=== PATIENT | male | born 1955 | race Caucasian/White ===

== ENCOUNTER 2017-12-22 16:11 | Observation (INO) | payer OTHER ==
[~2017-12-22] VITALS: Ht 172.7 cm; Wt 103.5 kg
[~2017-12-22 16:11] MED LIST: ADULT LOW DOSE81 MG PO; BYSTOLIC5 MG PO; CITALOPRAM HBR40 MG PO; CYCLOBENZAPRINE10 MG PO; CYMBALTA20 MG PO; DICLOFENAC SODI50 MG PO; DIVALPROEX SOD500 MG PO; ENALAPRIL MALEA20 MG PO; LISINOPRIL-HCT1 EAC1 PO; MELATONIN3 MG PO; MELOXICAM15 MG PO; METHYLPHENIDATE18 MG PO; METOPROLOL SUCC25 MG PO; METOPROLOL SUCC50 MG PO; MONTELUKAST SOD10 MG PO; NORCO 5-325 TA1 EACH PO; NORCO 7.5-3251 EACH PO; ROZEREM8 MG PO; SIMVASTATIN20 MG PO; TRILEPTAL150 MG PO; TYLENOL325 MG PO; ZOLOFT50 MG PO
[2017-12-22] MEDS ORDERED: ABILIFY20 MG PO (16:33)
[2017-12-22] MEDS ORDERED: VISTARIL25 MG PO (16:33)
[2017-12-22] MEDS ORDERED: OXCARBAZEPINE150 MG PO (16:35)
[2017-12-22] MEDS ORDERED: AMLODIPINE BESYL5 MG PO (16:35)
[2017-12-22] MEDS ORDERED: K-TAB ER20 MEQ PO (16:36)
[2017-12-22] MEDS ORDERED: LAMOTRIGINE100 MG PO (16:37)
[2017-12-22] MEDS ORDERED: LIPITOR20 MG PO (16:37)
[2017-12-22] MEDS ORDERED: GLUCOPHAGE XR500 MG PO (16:38)
--- NOTE | 2017-12-22 20:08 | NUR ---
PATIENT ARRIVED TO THE FLOOR VIA STRETCHER. PATIENT WAS ABLE TO AMBULATE A SBA. PATIENT IS STEADY ON HIS FEET. INTAKE COMPLETED. PATIENTS BEDSIDE SWALLOW EVAL COMPLETED AND PLACED IN THE CHART. PATIENT IS ADVANCED TO ADA DIET PER ORDER. PATIENT ORIENTED TO FLOOR AND ROOM. MRI CHECK SHEET COMPLETED AND PLACED IN THE CHART. ALL QUESTIONS ANSWERED. PATIENT IS ACCOMPAINED BY HIS . CALL LIGHT IN REACH.
--- NOTE | 2017-12-22 20:52 | NUR ---
PATIENT PROVIDED WITH SANDWICH BOX AND SOUP. NO FURTHER NEEDS NOTED. CALL LIGHT IN REACH. REMAINS AT THE BEDSIDE. RT IN THE ROOM TALKING WITH PT.
--- NOTE | 2017-12-22 21:16 | NUR ---
PT ASSESSMENT COMPLETE, PT ALERT AND ORIENTED X 4, PT DENIES ANY DEFACITS AT THIS TIME, SENSATION INTACT BUE, BLE. NO WEAKNESS NOTED. PT DOES STATE SPEECH IS " A LITTLE DELAYED". LUNGS CLEAR THROUGHOUT ALL LOBES. TO BRING HOME CPAP THIS EVENING. HR REGULAR RHTYHM ON TELE 2. PT CONCERNED WITH HOME OXCARBAZEPINE, VISTARIL 50 MG DOSE, PHONE CALL TO MD, MESSAGE LEFT ON VOICEMAIL. PT INSTRUCTED TO USE CALL LIGHT PRIOR TO GETTING OUT OF BED, VERBALIZED UNDERSTANDING, CALL LIGHT AND PERSONAL SUPPLIES IN REACH.
--- NOTE | 2017-12-22 22:20 | NUR ---
IN PT ROOM FOR MEDICATION ADMINISTRATION, HOME CPAP ON PT AT THIS TIME. NO REQUESTS. CALL LIGHT IN REACH.
--- NOTE | 2017-12-22 23:32 | NUR ---
IN ROOM FOR CONTINUOUS PROCESS MACHINE OPERATOR. PT HAS CPAP ON, LYING IN BED AWAKE. PT C/O NUMBNESS AND TINGLING IN LEFT ARM, STATES FROM LYING ON THAT ARM. CSM OTHERWISE INTACT. PT ALERT AND ORIENTED X 4. CALL LIGHT IN REACH, CPAP BACK ON.
--- NOTE | 2017-12-23 02:14 | NUR ---
VITALS COMPLETE AT THIS TIME. PT AWAKENS EASILY TO VOICE, HOME CPAP ON. PT ORIENTED X 4. STATES SOME NUMBNESS AND TINGLING IN LEFT ARM. CSM INTACT. STRENGTH EQUAL BUE, BLE. LUNGS CLEAR THROUGHOUT. HR 57 ON TELE 2. PT DENIES TOILETING NEEDS AT THIS TIME. CALL LIGHT IN REACH. LIGHTS OFF IN ROOM, NO REQUESTS AT THIS TIME.
--- NOTE | 2017-12-23 02:19 | NUR ---
VITALS AND I&OS DONE AND CHARTED. BEDSIDE TABLE AND CALL LIGHT WITHIN REACH.
--- NOTE | 2017-12-23 04:08 | NUR ---
CHECKED ON PT, APPEARS TO BE SLEEPING, EYES CLOSED, BREATHING NON-LABORED, VISIBLE CHEST RISE. HOME CPAP ON. LIGHTS OFF IN ROOM.
--- NOTE | 2017-12-23 05:32 | NUR ---
PT ALERT AND ORIENTED X 4. SOME NUMBNESS AND TINGLING NOTED LEFT ARM, CSM OTHERWISE INTACT. PT REPORTS SLOW SPEECH. SBA TO RESTROOM FOR QUANTITY SUFFICIENT VOIDS. PT USING HOME CPAP MACHINE WITH SLEEP. ON TELE 2.
--- NOTE | 2017-12-23 05:57 | NUR ---
VITALS AND IS AND OS COMPLETE AT THIS TIME, SBA TO RESTROOM FOR VOID, ORAL CARE, UPPER DENTURES BACK IN PT MOUTH. PT DENIES ANY NUMBNESS, TINGLING IN LEFT ARM. GAIT STEADY W AMBULATION. CSM INTACT BUE, BLE. PT BACK TO BED, REQUESTING COFFEE. CALL LIGHT IN REACH.
--- NOTE | 2017-12-23 07:40 | NUR ---
TELE AND STICKERS REMOVED FROM PATIENT'S PERSON AND PATIENT TAKEN TO MRI BY DIAGNOSTIC STAFF.
--- NOTE | 2017-12-23 08:15 | NUR ---
PATIENT IS OUT OF ROOM GETTING AN MRI DONE. I CAME IN AND CHANGED HIS BED LINENS. ALSO PUT NEW ELECTRODES ON HIS TELE.
--- NOTE | 2017-12-23 09:51 | NUR ---
PATIENT BACK IN BED AFTER MRI AND ULTRASOUND. PATIENT HAVING ECHO DONE NEXT IN HIS ROOM. FAMILY AT BEDSIDE.
[2017-12-23] MEDS ORDERED: OXCARBAZEPINE300 MG PO (10:41)
[2017-12-23] MEDS ORDERED: TOPROL XL25 MG PO (10:45)
--- NOTE | 2017-12-23 11:01 | EKG ---
[facility] [address] [place] [address] Signed Poor data quality, interpretation may be adversely affected Sinus bradycardia Otherwise normal ECG When compared with ECG of 13-NOV-2016 17:28, Vent. rate has decreased BY 54 BPM Confirmed by MICHELLE RESENDIZ MD ([id number]) on 12/23/2017 11:01:12 AM Electronically Signed By: MICHELLE RESENDIZ MD 12/23/17 1101 PATIENT NAME: JESUS CARMONA Electrocardiogram DATE OF : 59 PHYSICIAN: MICHELLE RESENDIZ MD REPORT #: [id number] REPORT IS CONFIDENTIAL AND NOT TO BE RELEASED WITHOUT AUTHORIZATION
--- NOTE | 2017-12-23 11:51 | NUR ---
MED REC COMPLETE
--- NOTE | 2017-12-23 14:00 | NUR ---
PATIENT IN BED AND AT BEDSIDE. PATIENT ALERT AND ORIENTED AND FEELS LIKE HE IS BACK TO HIS NORMAL SELF WITH EQUAL STRENGTH AND SENSATION IN ALL LIMBS. PATIENT AWAITING TO BE SEEN BY OT AND THEN HOPING TO BE DC'D HOME.
[2017-12-24] MEDS ORDERED: WARFARIN SODIUM1 MG PO (16:25)
== END 2017-12-23 16:05 | disposition home or self-care (01) ==
LOC: ED 16:11 → MS 16:12
PROVIDERS: ADMIT Internal Medicine
DX: I63.9 Cerebral infarction, unspecified (principal); R20.1 Hypoesthesia of skin; I10 Essential (primary) hypertension; E11.9 Type 2 diabetes mellitus without complications; R29.700 NIHSS score 0; E78.5 Hyperlipidemia, unspecified; F31.9 Bipolar disorder, unspecified; G47.33 Obstructive sleep apnea (adult) (pediatric); Z82.3 Family history of stroke; Z79.84 Long term (current) use of oral hypoglycemic drugs; Z79.1 Long term (current) use of non-steroidal anti-inflammatories (NSAID); Z79.82 Long term (current) use of aspirin; Z79.899 Other long term (current) drug therapy
CPT/HCPCS: 70450; 70551; 71045; 80053; 83036; 83735; 84484; 85025; 85610; 85730; 93005; 93010; 93225; 93226; 93227; 93306; 93880; 96372; 97116; 97161; 97165; 99285; G0378; G8978; G8979; G8980; J1650; Q0177

== ENCOUNTER 2017-12-24 16:09 | Emergency (ER) | payer OTHER ==
[~2017-12-24] VITALS: Ht 172.7 cm; Wt 103.4 kg
[~2017-12-24 16:09] MED LIST changes: +ABILIFY20 MG PO; +AMLODIPINE BESYL5 MG PO; +GLUCOPHAGE XR500 MG PO; +K-TAB ER20 MEQ PO; +LAMOTRIGINE100 MG PO; +LIPITOR20 MG PO; +OXCARBAZEPINE150 MG PO; +OXCARBAZEPINE300 MG PO; +TOPROL XL25 MG PO; +VISTARIL25 MG PO
[2017-12-24] MEDS ORDERED: WARFARIN SODIUM1 MG PO (16:25)
--- NOTE | 2017-12-25 12:34 | EKG ---
[facility] [address] [facility] [place] [address] Signed Sinus bradycardia Otherwise normal ECG When compared with ECG of 22-DEC-2017 17:00, Nonspecific T wave abnormality has replaced inverted T waves in Inferior leads Confirmed by MICHELLE RESENDIZ MD ([id number]) on 12/25/2017 12:34:17 PM Electronically Signed By: MICHELLE RESENDIZ MD 12/25/17 1234 PATIENT NAME: MATHEWJESUS Electrocardiogram DATE OF : 59 PHYSICIAN: MICHELLE RESENDIZ MD REPORT #: [id number] REPORT IS CONFIDENTIAL AND NOT TO BE RELEASED WITHOUT AUTHORIZATION
== END 2017-12-24 18:19 | disposition home or self-care (01) ==
LOC: ED 16:09
DX: R42 Dizziness and giddiness (principal); I10 Essential (primary) hypertension; E11.9 Type 2 diabetes mellitus without complications; F31.9 Bipolar disorder, unspecified; Z87.891 Personal history of nicotine dependence; Z79.01 Long term (current) use of anticoagulants; Z79.899 Other long term (current) drug therapy; Z79.82 Long term (current) use of aspirin; Z79.84 Long term (current) use of oral hypoglycemic drugs
CPT/HCPCS: 80053; 81001; 84484; 85025; 85610; 93005; 93010; 99283

== ENCOUNTER 2019-08-05 10:40 | Emergency (ER) | payer OTHER ==
[~2019-08-05] VITALS: Ht 172.7 cm; Wt 103.4 kg
[~2019-08-05 10:40] MED LIST changes: +WARFARIN SODIUM1 MG PO
[2019-08-05] MEDS ORDERED: LEXAPRO20 MG PO (11:02)
[2019-08-05] MEDS ORDERED: ATIVAN1 MG PO (12:30)
--- NOTE | 2019-08-06 12:49 | EKG ---
[facility] [address] [facility] [place] [address] Signed Sinus rhythm with occasional premature ventricular complexes Nonspecific ST and T wave abnormality Abnormal ECG When compared with ECG of 24-DEC-2017 16:18, premature ventricular complexes are now present Inverted T waves have replaced nonspecific T wave abnormality in Inferior leads QT has lengthened Confirmed by MICHELLE RESENDIZ MD ([id number]) on 08/06/2019 12:49:12 PM Electronically Signed By: MICHELLE RESENDIZ MD 08/06/19 1249 PATIENT NAME: JESUS CARMONA Electrocardiogram DATE OF : 59 PHYSICIAN: MICHELLE RESENDIZ MD REPORT #: [id number] REPORT IS CONFIDENTIAL AND NOT TO BE RELEASED WITHOUT AUTHORIZATION
== END 2019-08-05 12:38 | disposition home or self-care (01) ==
LOC: ED 10:40
DX: G25.3 Myoclonus (principal); T43.225A Adverse effect of selective serotonin reuptake inhibitors, initial encounter; I10 Essential (primary) hypertension; F31.9 Bipolar disorder, unspecified; E11.9 Type 2 diabetes mellitus without complications; Z79.899 Other long term (current) drug therapy; Z79.82 Long term (current) use of aspirin; Z79.84 Long term (current) use of oral hypoglycemic drugs
CPT/HCPCS: 80053; 83735; 84484; 85025; 93005; 93010; 96374; 96376; 99285-25; J2060

== ENCOUNTER 2019-08-18 11:45 | Emergency (ER) | payer OTHER ==
[~2019-08-18] VITALS: Ht 172.7 cm; Wt 103.4 kg
[~2019-08-18 11:45] MED LIST changes: +ATIVAN1 MG PO; +LEXAPRO20 MG PO
--- OUTSIDE RECORDS SUMMARY | 2019-08-18 11:48 | XMS ---
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 Ruth VISIT COUNT (12 MO.) 2 [facility] TOTAL 2 NOTE: Visits indicate total known visits. ED/UCC VISIT TRACKING (12 MO.) 08/18/2019 11:[address] 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
[2019-08-18] MEDS ORDERED: REMERON30 MG PO (11:57)
[2019-08-18] MEDS ORDERED: VALIUM5 MG PO (14:27)
--- NOTE | 2019-08-18 17:58 | EKG ---
[facility] [address] [facility] [place] [address] Signed Sinus rhythm with frequent premature ventricular complexes Otherwise normal ECG When compared with ECG of 05-AUG-2019 10:51, T wave inversion no longer evident in Anterior leads Confirmed by GENOVEVA LOERA MD ([id number]) on 08/18/2019 5:58:43 PM Electronically Signed By: GENOVEVA LOERA MD 08/18/19 1758 PATIENT NAME: MATHEWJESUS Electrocardiogram DATE OF : 59 PHYSICIAN: GENOVEVA LOERA MD REPORT #: [id number] REPORT IS CONFIDENTIAL AND NOT TO BE RELEASED WITHOUT AUTHORIZATION
== END 2019-08-18 14:45 | disposition home or self-care (01) ==
LOC: ED 11:45
DX: G24.9 Dystonia, unspecified (principal); R07.9 Chest pain, unspecified; G25.3 Myoclonus; I10 Essential (primary) hypertension; E11.9 Type 2 diabetes mellitus without complications; F31.9 Bipolar disorder, unspecified; G47.30 Sleep apnea, unspecified; Z79.899 Other long term (current) drug therapy; Z79.82 Long term (current) use of aspirin; Z79.84 Long term (current) use of oral hypoglycemic drugs
CPT/HCPCS: 71045; 80053; 82550; 84484; 85025; 93005; 93010; 96361; 96374; 96375; 99284-25; J1200; J3360; J7030

== ENCOUNTER 2020-12-30 08:36 | Emergency (ER) | payer OTHER ==
[~2020-12-30] VITALS: Ht 172.7 cm; Wt 103.4 kg
[~2020-12-30 08:36] MED LIST changes: +REMERON30 MG PO; +VALIUM5 MG PO
--- OUTSIDE RECORDS SUMMARY | 2020-12-30 08:43 | XMS ---
PreManage Notification: JESUS CARMONA Security Philanthropy Officer Events No recent Security Events currently on file CRITERIA MET - [facility] - Has Care Guidelines CARE PROVIDERS [facility] Internal Medicine 07/05/2017-Current PHONE: Unknown Guidelines Source: [facility] [facility] Guidelines Date: 11/06/2019 Care Coordination: Currently seeking mental health services through [employer]. Please contact [employer] for any mental health concerns.\T\nbsp; [place] [phone] [place] [phone] [facility] [phone] Care History Medical/Surgical 08/21/2019 [facility] - Patient is currently established with [facility]. If patient is seen in the ED during business hours. Please contact CHWs at [facility]. Care Recommendation: If this patient has had 5 or more Emergency Department visits in the last 12 months.\T\nbsp; Patient will require education on the scope and purpose of the ED as an acute care provider not a Primary Care Provider and should not be utilized for chronic conditions.\T\nbsp; These are guidelines and the provider should exercise clinical judgment when providing care. 08/21/2019 [facility] Patient has follow up with Dr. Pike on 08/22/2019 [facility] VISIT COUNT (12 MO.) 1 [facility] TOTAL 1 NOTE: Visits indicate total known visits. ED/UCC VISIT TRACKING (12 MO.) 12/30/2020 08:37 [facility] [place] TYPE: Emergency COMPLAINT: - HAND TINGLES, SOB INPATIENT VISIT TRACKING (12 MO.) No inpatient visits to display in this time frame [id number]
[2020-12-30] MEDS ORDERED: METOPROLOL SUC100 MG PO (09:38)
[2020-12-30] MEDS ORDERED: PRILOSEC OTC20 MG PO (11:32)
--- NOTE | 2021-01-01 13:31 | EKG ---
[facility] [address] [facility] [place] [address] Signed Sinus bradycardia Otherwise normal ECG When compared with ECG of 18-AUG-2019 11:49, premature ventricular complexes are no longer present Confirmed by MICHELLE RESENDIZ MD ([id number]) on 01/01/2021 1:31:41 PM Electronically Signed By: MICHELLE RSEENDIZ MD 01/01/21 1331 PATIENT NAME: MATHEWJESUS CARLOS Electrocardiogram DATE OF : 59 PHYSICIAN: MICHELLE RESENDIZ MD REPORT #: [id number] REPORT IS CONFIDENTIAL AND NOT TO BE RELEASED WITHOUT AUTHORIZATION
== END 2020-12-30 11:58 | disposition home or self-care (01) ==
LOC: ED 08:36
DX: R06.00 Dyspnea, unspecified (principal); K21.9 Gastro-esophageal reflux disease without esophagitis; I10 Essential (primary) hypertension; G47.30 Sleep apnea, unspecified; E11.9 Type 2 diabetes mellitus without complications; Z87.891 Personal history of nicotine dependence; Z79.899 Other long term (current) drug therapy; Z79.82 Long term (current) use of aspirin; Z79.84 Long term (current) use of oral hypoglycemic drugs
CPT/HCPCS: 71045; 80053; 83735; 83880; 84484; 85025; 85379; 93005; 93010; 99285-25

== ENCOUNTER 2021-04-26 14:34 | Emergency (ER) | payer OTHER ==
[~2021-04-26] VITALS: Ht 172.7 cm; Wt 103.4 kg
[~2021-04-26 14:34] MED LIST changes: +METOPROLOL SUC100 MG PO; +PRILOSEC OTC20 MG PO
--- OUTSIDE RECORDS SUMMARY | 2021-04-26 14:42 | XMS ---
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 Please contact [employer] for any mental health concerns.\T\nbsp; [place] [phone] [place] [phone] Crisis Line [phone] Care History Medical/Surgical 08/21/2019 [facility] - Patient is currently established with [facility]. If patient is seen in the ED during business hours. Please contact CHWs at [facility]. Care Recommendation: If this patient has had 5 or more Emergency Department visits in the last 12 months.\T\nbsp; Patient will require education on the scope and purpose of the ED as an acute care provider not a Primary Care Provider and should not be utilized for chronic conditions.\T\nbsp; These are guidelines and the provider should exercise clinical judgment when providing care. 08/21/2019 [facility] Patient has follow up with Dr. Pike on 08/22/2019 E.[facility] VISIT COUNT (12 MO.) 1 [facility] [place] 2 [facility] TOTAL 3 NOTE: Visits indicate total known visits. ED/UCC VISIT TRACKING (12 MO.) 04/26/2021 14:35 [facility] TYPE: Emergency COMPLAINT: - SLEEP PROBLEM [facility] DIAGNOSES: - Hallucinations - Bipolar disorder, current episode manic without psychotic features, moderate - Hypokalemia - insomnia, hallucinations - Insomnia, unspecified - insomnia 12/30/2020 08:37 [facility] TYPE: Emergency COMPLAINT: - HAND TINGLES, SOB DIAGNOSES: - Essential (primary) hypertension - Sleep apnea, unspecified - Gastro-esophageal reflux disease without esophagitis - Personal history of nicotine dependence - Shortness of breath - Other group home (current) drug therapy - Type 2 diabetes mellitus without complications - [facility] (current) use of oral hypoglycemic drugs - [facility] (current) use of aspirin - Dyspnea, unspecified INPATIENT VISIT TRACKING (12 MO.) No inpatient visits to display in this time frame [id number]
[2021-04-26] MEDS ORDERED: ABILIFY15 MG PO (16:05)
[2021-04-26] MEDS ORDERED: TRAZODONE HCL50 MG PO (16:06)
== END 2021-04-26 16:22 | disposition home or self-care (01) ==
LOC: ED 14:34
DX: F31.9 Bipolar disorder, unspecified (principal); G47.00 Insomnia, unspecified; I10 Essential (primary) hypertension; G47.30 Sleep apnea, unspecified; E11.9 Type 2 diabetes mellitus without complications; Z87.891 Personal history of nicotine dependence; Z79.899 Other long term (current) drug therapy; Z79.52 Long term (current) use of systemic steroids; Z79.84 Long term (current) use of oral hypoglycemic drugs
CPT/HCPCS: 99284